=== PATIENT | female | born 1965 | race Caucasian/White ===

== ENCOUNTER 2019-04-18 16:30 | Emergency (ER) | payer OTHER ==
--- NOTE | 2019-04-18 16:56 | Emergency Department Record ---
History of Present Illness - General Chief Complaint: Abdominal Pain Stated Complaint: LT ABD/FLANK PAIN Time Seen by Provider: 04/18/19 16:50 Source: Patient Mode of Arrival: Ambulatory Limitations: No limitations - History of Present Illness Initial Comments: 53 yo female presents with left sided abdominal pain. The onset was about 4-5 days ago. The pain is sharp. No rash. The pain radiates around the side of the abdomen. No dysuria. No diarrhea. She was seen in a [facility] care and an XR was performed. She was told it is constipate. She performed an enema at home. The enema did not significantly changes her symptoms. No history of chronic abdominal concerns. She had a colonoscopy at age 48 that was unremarkable per her. No history of renal stones. MD Complaint: Abdominal pain, Flank pain Onset/Timin -: Days(s) Location: LLQ Radiation: Back Migration to: LLQ Severity: Mild Severity scale (1-10): 4 Quality: Sharp Consistency: Constant, Intermittent Improves With: Nothing Worsens With: Nothing Associated Symptoms: Denies other symptoms - Related Data Home Medications Medication Instructions Recorded Confirmed Last Taken Levothyroxine Sodium [Synthroid] 150 mcg PO DAILY 04/18/19 04/18/19 Unknown Previous Rx's Medication Instructions Recorded Ibuprofen [Motrin 600Mg] 600 mg PO Q6H PRN #30 tablet 04/18/19 Allergies Allergy/AdvReac Type Severity Reaction Status Date / Time codeine AdvReac NAUSEA AND Verified 04/18/19 16:48 VOMITING Travel Screening - Travel/Exposure Within Last 30 Days Have you traveled within the last 30 days?: No Review of Systems Constitutional: Denies: Chills, Fever, Malaise, Weakness Eyes: Denies: Eye discharge ENT: Denies: Congestion, Throat pain Respiratory: Denies: Cough, Dyspnea, Hemoptysis, Stridor, Wheezes Cardiovascular: Denies: Dyspnea on exertion, Syncope Endocrine: Denies: Fatigue Gastrointestinal: Reports: Abdominal pain. Denies: Constipation, Diarrhea, Hematemesis, Hematochezia, Melena, Nausea, Vomiting Genitourinary: Denies: Dysuria, Urgency Musculoskeletal: Denies: Arthralgia, Back pain, Joint swelling, Myalgia Skin: Denies: Bruising, Change in color, Rash Neurological: Denies: Confusion, Headache, Weakness Psychiatric: Denies: Anxiety Hematological/Lymphatic: Denies: Easy bleeding, Easy bruising Past Medical History - SOCIAL HISTORY Smoking Status: Current every day smoker Alcohol Use: Occasional - RESPIRATORY Hx Respiratory Disorders: No - CARDIOVASCULAR Hx Cardio Disorders: No - NEURO Hx Neuro Disorders: No - GI Hx GI Disorders: No - Hx Genitourinary Disorders: No - ENDOCRINE Hx Endocrine Disorders: Yes Hx Thyroid Disease: Yes - MUSCULOSKELETAL Hx Musculoskeletal Disorders: No - PSYCH Hx Psych Problems: No - HEMATOLOGY/ONCOLOGY Hx Hematology/Oncology Disorders: No Family Medical History Any Significant Family History?: No Physical Exam - General General Appearance: Alert, Oriented x3, Cooperative, No acute distress Limitations: No limitations - Head Head exam: Atraumatic, Normal inspection - Eye Eye exam: Normal appearance, PERRL. negative: Conjunctival injection, Scleral icterus - ENT ENT exam: Normal exam, Mucous membranes moist Ear exam: Normal external inspection Nasal Exam: Normal inspection Mouth exam: Normal external inspection - Neck Neck exam: Normal inspection - Respiratory Respiratory exam: Normal lung sounds bilaterally. negative: Rhonchi, Stridor, Wheezes - Cardiovascular Cardiovascular Exam: Regular rate, Normal rhythm, Normal heart sounds - GI/Abdominal GI/Abdominal exam: Soft, Normal bowel sounds, Tenderness (Very soft abdomen with mild LLQ tenderness, remaining abdomen is very soft and non tender). negative: Distended, Guarding, Rebound, Rigid - Rectal Rectal exam: Deferred - exam: Deferred - Extremities Extremities exam: Normal inspection - Back Back exam: Denies: CVA tenderness (R), CVA tenderness (L), Paraspinal tenderness, Tenderness, Vertebral tenderness - Neurological Neurological exam: Alert, Oriented X3 - Psychiatric Psychiatric exam: Normal affect, Normal mood. negative: Agitated, Anxious - Skin Skin exam: Dry, Intact, Normal color, Warm Course Vital Signs 04/18/19 16:37 Temperature 97.7 F Pulse Rate 85 Respiratory 20 Rate Blood Pressure 154/82 Pulse Ox 98 - Reevaluation(s) Reevaluation #1: 04/18/19 18:08 The labs were reviewed No acute abnormalities on the CBC or CMP The Lipase is normal The Urinalysis is negative Medical Decision Making - Lab Data Result diagrams: 04/18/19 17:00 04/18/19 17:00 Disposition Disposition: Discharge Clinical Impression: Abdominal pain Qualifiers: Abdominal location: left upper quadrant Qualified Code(s): R10.12 - Left upper quadrant pain Disposition: Home, Self-Care Condition: (1) Good Instructions: Abdominal Pain (ED) Additional Instructions: Return to ED if your symptoms worsen or if you have any concerns. Motrin 600 mg as directed. Follow-up with your family doctor in 3-5 days as directed. Prescriptions: Ibuprofen [Motrin 600Mg] 600 mg PO Q6H PRN #30 tablet PRN Reason: Pain - Mod To Severe (5-10) Forms: Patient Portal Access Time of Disposition: 20:00 Quality - Quality Measures Quality Measures: N/A - Blood Pressure Screening Does Patient Have Any of the Following: No Blood Pressure Classification: Pre-Hypertensive BP Reading Systolic Measurement: 154 Diastolic Measurement: 82 Screening for High Blood Pressure: < Pre-Hypertensive BP, F/U Documented > [G8950] Pre-Hypertensive Follow-up Interventions: Referral to alternative/primary care jose borrego.
[2019-04-18] MEDS: ACETAMINOPHEN 1,000 MG/100 ML BTL IVPB ONE (17:11)
[2019-04-18] MEDS: 0.9 % SODIUM CHLORIDE 1,000 ML BAG IV ONE (17:11)
[2019-04-18 17:18] LABS: ABSOLUTE NEUTROPHIL COUNT 3.97; BASO % 0.6 % (0-6); EOS % 0.7 % (0-6); GRAN % 55.3 % (47-80); HEMATOCRIT 44.6 % (35.0-47.0); HEMOGLOBIN 14.7 gm/dl (11.6-16.0); LYMPH % 35.6 % (16-45); MEAN CELL VOLUME 92.5 fl (81-97); MEAN CORPUSCULAR HEMOGLOBIN 30.5 pg (27-33); MEAN PLATELET VOLUME 10.3 fl (7.4-10.4); MONO % 7.8 % (0-9); PLATELET COUNT 296 K/uL (130-400); RED BLOOD COUNT 4.82 M/uL (3.80-5.40); RED CELL DISTRIBUTION WIDTH 12.9 % (11.5-14.5); WHITE BLOOD COUNT W/O DIFF 7.2 K/uL (4.2-12.2)
[2019-04-18 17:31] LABS: BLOOD UREA NITROGEN 8 mg/dL (6-20); CREATININE 0.7 mg/dL (0.5-0.9); EST GLOMERULAR FILTRATION RATE > 60 mL/min; LIPASE 15 U/L (13-60); TOTAL PROTEIN 7.5 g/dL (6.6-8.7)
[2019-04-18 17:34] LABS: GLUCOSE,RANDOM 107 mg/dL (74-109)
[2019-04-18 17:36] LABS: ALB/GLOB RATIO 2.1 (1.1-1.8); ALBUMIN 5.1 g/dL (4.0-5.0); ALKALINE PHOSPHATASE 80 U/L (35-104); ALT/SGPT 13 U/L (<33); AST/SGOT 19 U/L (10.0-35.0)
[2019-04-18 17:49] LABS: URINE APPEARANCE CLEAR; URINE BILIRUBIN NEGATIVE (NEGATIVE); URINE BLOOD NEGATIVE (NEGATIVE); URINE COLOR YELLOW; URINE GLUCOSE (UA) NEGATIVE (NEGATIVE); URINE KETONE 15 mg/dL (NEGATIVE); URINE LEUKOCYTE ESTERASE NEGATIVE (NEGATIVE); URINE NITRITE NEGATIVE (NEGATIVE); URINE PROTEIN NEGATIVE (NEGATIVE); URINE UROBILINOGEN 0.2 E.U./dL (0.20 - 1.00)
--- NOTE | 2019-04-18 18:44 | CT SCAN REPORT ---
EXAMINATION: CT Abdomen and Pelvis with IV Contrast EXAM DATE: 04/18/2019 6:08 PM TECHNIQUE: CT imaging of the abdomen and pelvis was performed with intravenous contrast. Coronal and sagittal images were reconstructed. IV Contrast: The amount and type of contrast are recorded in the medical record. INDICATION: LLQ pain COMPARISON: None ENCOUNTER: Not applicable CT ABDOMEN AND PELVIS FINDINGS: Lung Bases: Included extent of the lung bases are clear. Hepatobiliary: Scattered small hypoattenuating lesions likely reflecting cysts. Normal gallbladder. Pancreas: The pancreas is normal. Spleen: The spleen is not enlarged. Adrenals: The adrenal glands are normal. Kidneys, Ureters, & Bladder: Both kidneys have a normal size and there is no hydronephrosis. Both ur eters have a normal caliber and the urinary bladder is unremarkable. Gastrointestinal: The stomach and small bowel are normal with no obstruction or inflammation. Normal appendix. The large bowel is normal. Reproductive Organs: Unremarkable Lymphatic System: There is no adenopathy within the abdomen or pelvis. Vasculature: Normal caliber abdominal aorta. Mild but premature atherosclerosis. Peritoneum: No free fluid, free air, or inflammation Abdominal Wall & Musculoskeletal: No suspicious bone lesions. Multilevel lumbar spondylosis, worst at L4-L5. IMPRESSION: 1. No acute findings within the abdomen or pelvis. 2. Mild but premature atherosclerosis. 3. Multilevel lumbar spondylosis, worst at L4-L5. Dictated by: Hermes Paredes MD on 04/18/2019 6:30 PM. .
--- NOTE | 2019-04-18 18:55 | Emergency Department Record ---
History of Present Illness - General Chief Complaint: Abdominal Pain Stated Complaint: LT ABD/FLANK PAIN Time Seen by Provider: 04/18/19 16:50 Source: Patient Mode of Arrival: Ambulatory Limitations: No limitations - History of Present Illness MD Complaint: Abdominal pain, Flank pain Onset/Timin -: Days(s) Location: LLQ Radiation: Back Migration to: LLQ Severity: Mild Severity scale (1-10): 4 Quality: Sharp Consistency: Constant, Intermittent Improves With: Nothing Worsens With: Nothing Associated Symptoms: Denies other symptoms - Related Data Patient : No Home Medications Medication Instructions Recorded Confirmed Last Taken Levothyroxine Sodium [Synthroid] 150 mcg PO DAILY 04/18/19 04/18/19 Unknown Previous Rx's Medication Instructions Recorded Ibuprofen [Motrin 600Mg] 600 mg PO Q6H PRN #30 tablet 04/18/19 Allergies Allergy/AdvReac Type Severity Reaction Status Date / Time codeine AdvReac NAUSEA AND Verified 04/18/19 16:48 VOMITING Travel Screening - Travel/Exposure Within Last 30 Days Have you traveled within the last 30 days?: No Review of Systems Constitutional: Denies: Chills, Fever, Malaise, Weakness Eyes: Denies: Eye discharge ENT: Denies: Congestion, Throat pain Respiratory: Denies: Cough, Dyspnea, Hemoptysis, Stridor, Wheezes Cardiovascular: Denies: Dyspnea on exertion, Syncope Endocrine: Denies: Fatigue Gastrointestinal: Reports: Abdominal pain. Denies: Constipation, Diarrhea, Hematemesis, Hematochezia, Melena, Nausea, Vomiting Genitourinary: Denies: Dysuria, Urgency Musculoskeletal: Denies: Arthralgia, Back pain, Joint swelling, Myalgia Skin: Denies: Bruising, Change in color, Rash Neurological: Denies: Confusion, Headache, Weakness Psychiatric: Denies: Anxiety Hematological/Lymphatic: Denies: Easy bleeding, Easy bruising Past Medical History - SOCIAL HISTORY Smoking Status: Current every day smoker Alcohol Use: Occasional - RESPIRATORY Hx Respiratory Disorders: No - CARDIOVASCULAR Hx Cardio Disorders: No - NEURO Hx Neuro Disorders: No - GI Hx GI Disorders: No - Hx Genitourinary Disorders: No - ENDOCRINE Hx Endocrine Disorders: Yes Hx Thyroid Disease: Yes - MUSCULOSKELETAL Hx Musculoskeletal Disorders: No - PSYCH Hx Psych Problems: No - HEMATOLOGY/ONCOLOGY Hx Hematology/Oncology Disorders: No Family Medical History Any Significant Family History?: No Physical Exam - General Limitations: No limitations Course Vital Signs 04/18/19 04/18/19 16:37 18:31 Temperature 97.7 F Pulse Rate 85 Pulse Rate [ 77 Pulse Ox Probe] Respiratory 20 18 Rate Blood Pressure 154/82 Blood Pressure 169/102 [Right Arm] Pulse Ox 98 98 - Reevaluation(s) Reevaluation #1: 04/18/19 18:53 CT Abdomen and Pelvis: No acute process Mild premature athersclerosis Multi-level spondylosis worst at L4-L5 Patient was updated on all results Laboratory studies were reviewed and appears grossly unremarkable for an acute process. Patient is resting comfortably on re-examination, appears stable for discharge at this time with symptomatic treatment as directed. Medical Decision Making - Lab Data Result diagrams: 04/18/19 17:00 04/18/19 17:00 Lab Results 04/18/19 04/18/19 04/18/19 Range/Units 16:51 17:00 17:00 WBC 7.2 (4.2-12.2) K/uL RBC 4.82 (3.80-5.40) M/uL Hgb 14.7 (11.6-16.0) gm/dl Hct 44.6 (35.0-47.0) % MCV 92.5 (81-97) fl MCH 30.5 (27-33) pg MCHC 33.0 (32-36) g/dl RDW 12.9 (11.5-14.5) % Plt Count 296 (130-400) K/uL MPV 10.3 (7.4-10.4) fl Gran % 55.3 (47-80) % Lymphocytes % 35.6 (16-45) % Monocytes % 7.8 (0-9) % Eosinophils % 0.7 (0-6) % Basophils % 0.6 (0-6) % Absolute Neutrophils 3.97 Sodium 138 (136-145) mmol/L Potassium 3.7 (3.4-4.5) mmol/L Chloride 97 L (98-107) mmol/L Carbon Dioxide 24.0 (22-29) mmol/L Anion Gap 17.0 H (7-16) BUN 8 (6-20) mg/dL Creatinine 0.7 (0.5-0.9) mg/dL Estimated GFR > 60 mL/min Random Glucose 107 (74-109) mg/dL Calcium 9.7 (8.6-10.0) mg/dL Total Bilirubin 0.60 (0.2-1.0) mg/dL AST 19 (10.0-35.0) U/L ALT 13 (<33) U/L Alkaline Phosphatase 80 (35-104) U/L Total Protein 7.5 (6.6-8.7) g/dL Albumin 5.1 H (4.0-5.0) g/dL Globulin 2.4 (1.4-4.8) gm/dL Albumin/Globulin Ratio 2.1 H (1.1-1.8) Lipase 15 (13-60) U/L Urine Color Yellow Urine Appearance Clear Urine pH 7.0 (5.0-8.0) Ur Specific [place] <= 1.005 (1.002-1.030) Urine Protein Negative (NEGATIVE) Urine Glucose (UA) Negative (NEGATIVE) Urine Ketones 15 mg/dl H (NEGATIVE) Urine Blood Negative (NEGATIVE) Urine Nitrite Negative (NEGATIVE) Urine Bilirubin Negative (NEGATIVE) Urine Urobilinogen 0.2 (0.20 - 1.00) E.U./dL Ur Leukocyte Esterase Negative (NEGATIVE) Disposition Disposition: Discharge Clinical Impression: Abdominal pain Qualifiers: Abdominal location: left upper quadrant Qualified Code(s): R10.12 - Left upper quadrant pain Disposition: Home, Self-Care Condition: (1) Good Instructions: Abdominal Pain (ED) Additional Instructions: Return to ED if your symptoms worsen or if you have any concerns. Motrin 600 mg as directed. Follow-up with your family doctor in 3-5 days as directed. Prescriptions: Ibuprofen [Motrin 600Mg] 600 mg PO Q6H PRN #30 tablet PRN Reason: Pain - Mod To Severe (5-10) Forms: Patient Portal Access Time of Disposition: 18:55 Quality - Quality Measures Quality Measures: N/A - Blood Pressure Screening Does Patient Have Any of the Following: No Blood Pressure Classification: Pre-Hypertensive BP Reading Systolic Measurement: 154 Diastolic Measurement: 82 Screening for High Blood Pressure: < Pre-Hypertensive BP, F/U Documented > [G8950] Pre-Hypertensive Follow-up Interventions: Referral to alternative/primary care provider.
== END 2019-04-18 19:11 | disposition home or self-care (01) ==
LOC: ER 16:30
DX: R10.32 Left lower quadrant pain (principal); F17.210 Nicotine dependence, cigarettes, uncomplicated
CPT/HCPCS: 74177; 80053; 81003; 83690; 85025; 96365; 99284; J7030